=== PATIENT | male | born 1965 | race Caucasian/White ===

== ENCOUNTER 2023-08-29 09:53 | Emergency (ER) | payer BC, MEDICARE ==
[~2023-08-29] VITALS: Ht 175.3 cm; Wt 107.4 kg
[2023-08-29] MEDS: ondansetron/PF 4mg/2ml inj IV ONE ×2 (11:15→11:22)
[2023-08-29] MEDS: ketorolac trometh. 30mg/ml inj. IV ONE (11:23)
[2023-08-29 11:57] LABS: BASOPHILS # (AUTO) 0.1 X10'3 (0-0.2); BASOPHILS % (AUTO) 0.8 % (0-1); EOSINOPHILS # (AUTO) 0.1 X10'3 (0-0.9); EOSINOPHILS % (AUTO) 1.1 % (0-6); HEMATOCRIT 46.7 % (42.0-52.0); HEMOGLOBIN 15.9 g/dl (14.0-17.9); LYMPHOCYTES # (AUTO) 2.5 X10'3 (1.1-4.8); MEAN CORPUSCULAR HEMOGLOBIN 31.3 PG (27.0-31.0); MEAN CORPUSCULAR HGB CONC 34.1 g/dL (33.0-36.5); MEAN CORPUSCULAR VOLUME 91.8 FL (78-98); MEAN PLATELET VOLUME 7.1 FL (7.4-10.4); MONOCYTES # (AUTO) 0.5 X10'3 (0-0.9); MONOCYTES % (AUTO) 6.6 % (2-12); NEUTROPHILS # (AUTO) 4.9 X10'3 (1.8-7.7); NEUTROPHILS % (AUTO) 60.5 % (42-75); PLATELET COUNT 238 X10'3 (140-440); RED BLOOD COUNT 5.08 X10'6 (4.70-6.10); RED CELL DISTRIBUTION WIDTH 13.2 % (11.5-14.5)
[2023-08-29] MEDS: HYDROmorphone inj. 0.5 MG/0.5 ML DISP.SYRIN IV STA (12:02)
[2023-08-29 12:08] LABS: ALANINE AMINOTRANSFERASE 54 U/L (12-78); ALBUMIN 4.3 G/DL (3.4-5.0); ALBUMIN/GLOBULIN RATIO 1.2 (1.1-1.5); ALKALINE PHOSPHATASE 89 IU/L (46-116); ANION GAP 12 (8-16); ASPARTATE AMINO TRANSFERASE 14 U/L (10-37); BILIRUBIN,TOTAL 0.4 MG/DL (0.1-1.0); BLOOD UREA NITROGEN 15 MG/DL (7-18); BUN/CREATININE RATIO 14.4 (10.0-20.0); CALCIUM 9.3 MG/DL (8.5-10.1); CHLORIDE 104 MMOL/L (99-107); CREATININE 1.04 MG/DL (0.60-1.10); GLUCOSE 112 MG/DL (70-104); LIPASE 43 U/L (16-77); POTASSIUM 4.4 MMOL/L (3.5-5.1); SODIUM 142 MMOL/L (135-145); TOTAL CARBON DIOXIDE 25.6 MMOL/L (24-32); TOTAL PROTEIN 7.8 G/DL (6.4-8.2); eCRCL 76 ML/MIN; eGFR 73 ML/MIN
[2023-08-29 12:55] LABS: BILIRUBIN,URINE NEGATIVE (Neg); CLARITY,URINE CLEAR (Clear); COLOR,URINE YELLOW (Yellow); GLUCOSE, URINE NEGATIVE (Neg); KETONES,URINE NEGATIVE (Neg); LEUKOCYTE ESTERASE ,URINE NEGATIVE (Neg); NITRITES, URINE NEGATIVE (Neg); OCCULT BLOOD,URINE TRACE-INTACT (Neg); PH,URINE 5.5 (4.8-8.0); PROTEIN,URINE NEGATIVE (Neg); UROBILINOGEN,URINE 0.2 E.U/dL (0.2-1.0)
[2023-08-29 13:00] LABS: UA COLLECTION TYPE CLN CATCH MIDSTREAM
[2023-08-29 13:02] LABS: BACTERIA,URINE FEW /HPF (Neg); RBC,URINE 0-2 /HPF (0-2); SQUAMOUS EPITHELIAL CELL,UR FEW /LPF (FEW); WBC,URINE 0-4 /HPF (0-4)
[2023-08-29] MEDS: HYDROmorphone inj. 0.5 MG/0.5 ML DISP.SYRIN IV ONE (13:32)
[2023-08-29] MEDS ORDERED: iohexol 300mg/ml 100ml inj. ONE (14:19)
[2023-08-29 16:46] VITALS: BP 146/109; PULSE 89; RESP 18; TEMP 98.5; O2SAT 97
== END 2023-08-29 16:53 | disposition home or self-care (01) ==
LOC: ER 09:53
DX: R31.9 Hematuria, unspecified (principal)
CPT/HCPCS: 36415; 74176; 74177; 76770; 80053; 81001; 83690; 85025; 96374; 96375; 96376; 99285; J1170; J1885; J2405; J3490; Q9967

== ENCOUNTER 2023-11-02 16:53 | Emergency (ER) | payer BC ==
[~2023-11-02] VITALS: Ht 175.3 cm; Wt 120.5 kg
[2023-11-02] MEDS: fluorescein sod 1mg ophthalmic strip EACHEYE ONE (18:31)
[2023-11-02] MEDS: proparacaine 0.5% ophthalmic drops 15ml EACHEYE ONE (18:31)
[2023-11-02] MEDS: morphine 4 MG/ML inj SYRINge IV ONE (18:36)
[2023-11-02] MEDS: ondansetron/PF 4mg/2ml inj IV ONE (18:36)
[2023-11-02 19:47] VITALS: BP 145/99; PULSE 71; RESP 14; O2SAT 97
[2023-11-02] MEDS ORDERED: CEPH-585 PO (20:01)
[2023-11-02] MEDS ORDERED: OXYC-658 PO (20:01)
[2023-11-02] MEDS ORDERED: IBUP-1984 PO (20:01)
[2023-11-02 20:26] VITALS: TEMP 97.8
== END 2023-11-02 20:30 | disposition home or self-care (01) ==
LOC: ER 16:54
DX: S02.31XA Fracture of orbital floor, right side, initial encounter for closed fracture (principal); S02.831A Fracture of medial orbital wall, right side, initial encounter for closed fracture; H11.31 Conjunctival hemorrhage, right eye; W01.0XXA Fall on same level from slipping, tripping and stumbling without subsequent striking against object, initial encounter; Y93.89 Activity, other specified; Y92.89 Other specified places as the place of occurrence of the external cause; Y99.8 Other external cause status
CPT/HCPCS: 70450; 70486; 96374; 96375; 99285; J2270; J2405